=== PATIENT | male | born 1945 | race Caucasian/White ===

== ENCOUNTER 2016-12-28 10:06 | Emergency (ER) | payer MEDICARE, BC ==
--- NOTE | 2016-12-31 14:46 | ER ---
ADMIT: 12/28/2016 RM/LOC: ER [facility] MR#: [id number] [address] YOLI BRAND [address] [place] [address] Emergency Room Report SEX: M AGE: 71 : 1945 DATE: 12/28/2016 CHIEF COMPLAINT: Weakness. HISTORY OF PRESENT ILLNESS: This 71-year-old male, who said he actually felt fine yesterday. He felt fine even today. He got up, ate breakfast without any difficulty. He is walking to the shower, felt fine at that time. Even in the shower, felt great. He bent over to turn off the water and then all of a sudden his legs just gave out on him, and he fell in the shower. COURSE IN THE EMERGENCY ROOM: EKG, BMP, PT/INR and CBC was done. EKG showed sinus rhythm at a rate of 80 over-read [address] Dr[address] Campbell. BMP was normal except for his looks slightly dehydrated. His bicarb was 19. His BUN was 62. His creatinine is 2.7. Glucose was 189. I did give him a liter of fluids here. He actually feels significantly better. His PT/INR 15.4 and 1.46. CBC; his WBC is 4.7, hemoglobin 11.9, and platelets are 70. He feels okay to go home. He will follow up with Dr. Rahman tomorrow to recheck his BUN and creatinine. DISPOSITION: Stable at discharge and will follow up tomorrow. TYREE Schmidt / Ryley Campbell MD / modl JOB #: [id number] CC: Ryley Campbell MD, Attending Physician Romain Rahman MD, Family Physician
[2017-02-23] MEDS ORDERED: ZYLOPRIM-DPS100 MG PO (18:29)
[2017-02-23] MEDS ORDERED: NORVASC DPS10 MG PO (18:29)
[2017-02-23] MEDS ORDERED: REQUIP1 MG PO (18:30)
[2017-02-23] MEDS ORDERED: ZESTRIL DPS40 MG PO (18:30)
[2017-02-23] MEDS ORDERED: ASA CHILDREN'S81 MG PO (18:30)
[2017-02-23] MEDS ORDERED: FLOMAX DPS0.4 MG PO (18:30)
[2017-02-23] MEDS ORDERED: PROSCAR DPS5 MG PO (18:31)
[2017-02-23] MEDS ORDERED: TOUJEO SOL300 UNIT/1 SQ (18:31)
[2017-02-23] MEDS ORDERED: NEURONTIN DPS300 MG PO (18:31)
[2017-02-23] MEDS ORDERED: VITAMIN B-122000 MCG PO (18:31)
[2017-02-23] MEDS ORDERED: GLUCOTROL DPS5 MG PO (18:31)
[2017-02-23] MEDS ORDERED: COUMADIN7.5 MG PO (18:32)
[2017-02-23] MEDS ORDERED: SYNTHROID DP0.075 MG PO (18:32)
[2017-02-23] MEDS ORDERED: COUMADIN5 MG PO (18:32)
[2017-02-23] MEDS ORDERED: INSULIN SQ (18:33)
[2017-02-23] MEDS ORDERED: TYLENOL DPS325 MG PO (18:34)
== END 2016-12-28 13:25 | disposition home or self-care (01) ==
LOC: ER 10:06
DX: E86.0 Dehydration (principal); R53.1 Weakness; I12.9 Hypertensive chronic kidney disease with stage 1 through stage 4 chronic kidney disease, or unspecified chronic kidney disease; N18.9 Chronic kidney disease, unspecified; E03.9 Hypothyroidism, unspecified; E11.9 Type 2 diabetes mellitus without complications; Z86.73 Personal history of transient ischemic attack (TIA), and cerebral infarction without residual deficits; Z88.5 Allergy status to narcotic agent; Z88.8 Allergy status to other drugs, medicaments and biological substances; Z79.82 Long term (current) use of aspirin; Z79.84 Long term (current) use of oral hypoglycemic drugs; Z79.4 Long term (current) use of insulin; Z79.899 Other long term (current) drug therapy; W18.2XXA Fall in (into) shower or empty bathtub, initial encounter

== ENCOUNTER → 2017-01-12 | Outpatient (CLI) | payer MEDICARE, BC ==
[~2017-01-12] MED LIST: ASA CHILDREN'S81 MG PO; COUMADIN5 MG PO; COUMADIN7.5 MG PO; FLOMAX DPS0.4 MG PO; GLUCOTROL DPS5 MG PO; INSULIN SQ; NEURONTIN DPS300 MG PO; NORVASC DPS10 MG PO; PROSCAR DPS5 MG PO; REQUIP1 MG PO; SYNTHROID DP0.075 MG PO; TOUJEO SOL300 UNIT/1 SQ; TYLENOL DPS325 MG PO; VITAMIN B-122000 MCG PO; ZESTRIL DPS40 MG PO; ZYLOPRIM-DPS100 MG PO
== END | disposition home or self-care (01) ==
LOC: RAD.S 12:49
DX: M54.9 Dorsalgia, unspecified (principal); M62.81 Muscle weakness (generalized); M47.817 Spondylosis without myelopathy or radiculopathy, lumbosacral region; M51.26 Other intervertebral disc displacement, lumbar region

== ENCOUNTER 2017-01-17 13:17 | Emergency (ER) | payer MEDICARE, BC ==
--- NOTE | 2017-01-18 13:05 | ER ---
ADMIT: 01/17/2017 RM/LOC: ER [facility] MR#: [id number] [address] YOLI BRAND [address] [place] [address] Emergency Room Report SEX: M AGE: 71 : 1945 DATE: 01/17/2017 HISTORY OF PRESENT ILLNESS: The patient is a 71-year-old male with a past medical history of diabetes, hypertension, CVA, hypothyroidism, peripheral vascular disease, came to the ER with chief complaint of left hip bruising. The patient states three days ago, on Thursday, he fell from the bed and after he noticed a bruise on the left gluteal area. The patient states at baseline, he is walking with a walker, and he has no new pains or limited range of motion in the hips. The patient just wanted to double check on bruising. The patient states he was on Coumadin for CVA, but on , he stopped the Coumadin because he is going to have an epidural in the coming days. The patient denies any new pain or discomfort. PHYSICAL EXAMINATION: HEAD: Noncontributory. NECK: Noncontributory. CHEST: Noncontributory. ABDOMEN: Noncontributory. In the left gluteal area, there is a palm size ecchymosis without fluctuation and without palpating hematoma, range of motion of the left hip was normal. The rest of the physical exam is noncontributory. The patient was reassured and was discharged to home with diagnosis of left gluteal ecchymosis and contusion, status post fall to follow up with the primary doctor as needed. Torito Arredondo MD/ nawaf JOB #: [id number] CC: Valentin Allen MD, Attending Physician Romain Rahman MD, Family Physician
[2017-02-23] MEDS ORDERED: NORVASC DPS10 MG PO (18:29)
[2017-02-23] MEDS ORDERED: ZYLOPRIM-DPS100 MG PO (18:29)
[2017-02-23] MEDS ORDERED: REQUIP1 MG PO (18:30)
[2017-02-23] MEDS ORDERED: FLOMAX DPS0.4 MG PO (18:30)
[2017-02-23] MEDS ORDERED: ZESTRIL DPS40 MG PO (18:30)
[2017-02-23] MEDS ORDERED: ASA CHILDREN'S81 MG PO (18:30)
[2017-02-23] MEDS ORDERED: TOUJEO SOL300 UNIT/1 SQ (18:31)
[2017-02-23] MEDS ORDERED: NEURONTIN DPS300 MG PO (18:31)
[2017-02-23] MEDS ORDERED: VITAMIN B-122000 MCG PO (18:31)
[2017-02-23] MEDS ORDERED: GLUCOTROL DPS5 MG PO (18:31)
[2017-02-23] MEDS ORDERED: PROSCAR DPS5 MG PO (18:31)
[2017-02-23] MEDS ORDERED: COUMADIN7.5 MG PO (18:32)
[2017-02-23] MEDS ORDERED: COUMADIN5 MG PO (18:32)
[2017-02-23] MEDS ORDERED: SYNTHROID DP0.075 MG PO (18:32)
[2017-02-23] MEDS ORDERED: INSULIN SQ (18:33)
[2017-02-23] MEDS ORDERED: TYLENOL DPS325 MG PO (18:34)
== END 2017-01-17 14:00 | disposition home or self-care (01) ==
LOC: ER 13:17
DX: S30.0XXA Contusion of lower back and pelvis, initial encounter (principal); I10 Essential (primary) hypertension; E11.9 Type 2 diabetes mellitus without complications; E03.9 Hypothyroidism, unspecified; I73.9 Peripheral vascular disease, unspecified; Z86.73 Personal history of transient ischemic attack (TIA), and cerebral infarction without residual deficits; Z88.5 Allergy status to narcotic agent; Z88.8 Allergy status to other drugs, medicaments and biological substances; Z79.899 Other long term (current) drug therapy; W06.XXXA Fall from bed, initial encounter